=== PATIENT | male | born 1990 | race Two or more races ===

== ENCOUNTER → 2019-08-31 | Emergency (ER) | payer MEDICAID, OTHER ==
[~2019-08-31] VITALS: Ht 165.1 cm; Wt 83.9 kg
[2019-08-31 19:36] VITALS: BP 132/84
== END | disposition left against medical advice (07) ==
LOC: ER 19:04 → EDBD 19:04
DX: R45.851 Suicidal ideations (principal); F32.9 Major depressive disorder, single episode, unspecified; E11.9 Type 2 diabetes mellitus without complications